=== PATIENT | female | born 1950 | race Caucasian/White ===

== ENCOUNTER → 2024-04-21 | Outpatient (CLI) | payer MEDICARE, SELFPAY ==
--- NOTE | 2024-04-21 08:46 | ECHOD_ITS ---
Reason For Study: Pericardial Effusion Procedure This was a 2D Doppler, Color Flow transthoracic echocardiogram. Exam performed in department. Left Ventricle Normal LV size. Left ventricular systolic function is normal. The left ventricular ejection fraction is 55 %. Normal diastology for age. No regional wall motion abnormalities noted. Right Ventricle Normal RV size. Normal systolic function. Atria Normal left atrium. Normal right atrium. Mitral Valve Normal mitral valve. Mild (1+) eccentric mitral valve insufficiency. Tricuspid Valve Normal tricuspid valve. Mild (1+) tricuspid valve insufficiency. Pulmonary artery systolic pressure is 30 mmHg. Aortic Valve Trisinus/trileaflet aortic valve. Mild diffuse aortic valve thickening. Mild (1+) aortic valve insufficiency. Pulmonic Valve Normal pulmonic valve. Great Vessels Mildly dilated aortic root. The pulmonary artery is normal size. Normal inferior vena cava. Pericardium/Pleural No pericardial effusion. MMode/2D Measurements & Calculations LVIDd: 4.7 cm IVSd: 0.90 cm Ao root diam: 3.7 cm LVIDs: 3.4 cm LVPWd: 1.3 cm LA dimension: 4.2 cm RVDd: 3.8 cm FS: 27.2 % LAV(MOD-bp): 59.4 ml LVAd ap4: 29.5 cm2 SV(MOD-sp4): 50.8 ml LAV(MOD-bp) Indexed: 31.2 ml/m2 LVLd ap4: 7.5 cm LAV(MOD-sp2): 58.6 ml EDV(MOD-sp4): 96.0 ml LAV(MOD-sp4): 59.4 ml EDV(sp4-el): 98.0 ml LVAs ap4: 18.9 cm2 LVLs ap4: 6.7 cm ESV(MOD-sp4): 45.2 ml ESV(sp4-el): 45.5 ml EF(MOD-sp4): 52.9 % EF(sp4-el): 53.6 % SV(sp4-el): 52.5 ml LA A4 area: 20.3 cm2 RA A4 area: 18.1 cm2 TAPSE: 1.4 cm Time Measurements MV dec time: 0.24 sec Doppler Measurements & Calculations MV E max neno: 101.6 cm/sec Lat Peak E' Neno: 5.2 cm/sec Med Peak E' Neno: 4.6 cm/sec MV A max neno: 34.9 cm/sec E/E' lat: 19.6 E/E' med: 22.2 MV E/A: 2.9 MV V2 max: 118.6 cm/sec MV P1/2t max neno: 119.8 cm/sec Ao V2 max: 143.1 cm/sec MV max P.6 mmHg MV P1/2t: 81.5 msec Ao max P.2 mmHg MV V2 mean: 57.6 cm/sec MV dec slope: 430.4 cm/sec2 Ao V2 mean: 103.3 cm/sec MV mean P.7 mmHg Ao mean P.9 mmHg MV V2 VTI: 32.0 cm MVA(P1/2t): 2.7 cm2 Ao V2 VTI: 36.3 cm AV (velocity ratio): 0.49 AI max neno: 393.7 cm/sec LV V1 max: 71.2 cm/sec PA V2 max: 78.0 cm/sec AI max P.0 mmHg LV V1 max P.0 mmHg PA V2 mean: 55.7 cm/sec AI dec slope: 181.4 cm/sec2 LV V1 mean P.3 mmHg AI P1/2t: 635.6 msec LV V1 mean: 53.3 cm/sec LV V1 VTI: 17.6 cm TR max neno: 252.3 cm/sec TR max P.5 mmHg ECHO/Echo Complete Interpretation Summary Normal LV size. Left ventricular systolic function is normal. The left ventricular ejection fraction is 55 %. Mild (1+) tricuspid valve insufficiency. Pulmonary artery systolic pressure is 30 mmHg. Ordering Physician: PER LFORES Referring Physician: PER FLORES Performed By: Johann Deng RCS
== END | disposition home or self-care (01) ==
LOC: CVS 08:42
PROVIDERS: PCP Internal Medicine
DX: I31.39 Other pericardial effusion (noninflammatory) (principal)
CPT/HCPCS: 93306